=== PATIENT | female | born 1965 | race Caucasian/White ===

== ENCOUNTER 2020-12-27 10:46 | Emergency (ER) | payer OTHER ==
[2020-12-27 11:33] LABS: HEMOGLOBIN 16.3 gm/dl (12.3-15.3); RED BLOOD COUNT 4.94 M/UL (4.00-5.10); WHITE BLOOD COUNT 8.5 K/UL (4.5-11.0)
[2020-12-27 12:01] LABS: BUN/CREATININE RATIO 12 (0-10)
[2020-12-27] MEDS ORDERED: NITROSTAT0.4 MG SL (14:06)
[2020-12-27] MEDS ORDERED: ST. JOSEPH ASPI81 MG PO (14:06)
== END 2020-12-27 15:22 | disposition home or self-care (01) ==
LOC: ER1 10:46
PROVIDERS: Emergency Medicine
DX: R07.89 Other chest pain (principal); M54.2 Cervicalgia; R42 Dizziness and giddiness; J98.11 Atelectasis; F17.200 Nicotine dependence, unspecified, uncomplicated; Z87.39 Personal history of other diseases of the musculoskeletal system and connective tissue
CPT/HCPCS: 36415; 70450; 71045; 72125; 80053; 82550; 82553; 83874; 84484; 85025; 85379; 87040; 93005; 99285